=== PATIENT | female | born 1995 | race Caucasian/White ===

== ENCOUNTER 2023-02-09 17:08 | Emergency (ER) | payer MEDICAID ==
[~2023-02-09] VITALS: Ht 157.5 cm; Wt 68.9 kg
[2023-02-09 17:15] VITALS: TEMP 98.2
[2023-02-09] MEDS ORDERED: AMOX/CLAVULANATE 875 MG TABLET ONE ×2 (18:18→18:28)
[2023-02-09] MEDS ORDERED: TDAP [DIPH/PERTUSSIS/TET] 0.5 ML VIAL IM ONE ×4 (18:18→18:32)
[2023-02-09] MEDS ORDERED: AMOX/CLAVULANATE 875 MG TABLET PO ONE (18:30)
[2023-02-09] MEDS ORDERED: AMOX-430 PO (19:35)
[2023-02-09 19:56] VITALS: BP 112/58; O2SAT 98
== END 2023-02-09 19:56 | disposition home or self-care (01) ==
LOC: ER 17:23
DX: S91.331A Puncture wound without foreign body, right foot, initial encounter (principal); Z79.899 Other long term (current) drug therapy; W55.01XA Bitten by cat, initial encounter; Y93.89 Activity, other specified; Y92.89 Other specified places as the place of occurrence of the external cause; Y99.8 Other external cause status
CPT/HCPCS: 73630-TC; 90715